=== PATIENT | female | born 1975 | race Hispanic/Latino ===

== ENCOUNTER 2018-04-23 17:19 | Emergency (ER) | payer OTHER ==
[~2018-04-23] VITALS: Ht 154.9 cm; Wt 74.8 kg
--- NOTE | 2018-04-23 17:36 | ED GENERAL ADULT ---
History of Present Illness General Chief Complaint: Chest Pain Stated Complaint: CP, RLE EDEMA, COUGH, SOB, X 3 MONTHS Source: patient Exam Limitations: no limitations Vital Signs & Intake/Output Vital Signs & Intake/Output Vital Signs Date Time Temp Pulse Resp B/P B/P Pulse O2 O2 Flow FiO2 Mean Ox Delivery Rate 04/23 2157 98.2 74 18 128/79 99 Room Air 04/23 1729 98.5 86 18 131/86 98 Room Air ED Intake and Output 04/24 0000 04/23 1200 Intake Total Output Total Balance Patient 165 lb Weight Allergies Coded Allergies: NO KNOWN ALLERGIES (02/18/11) Reconcile Medications Cyclobenzaprine HCl 10 MG TABLET 1 TAB PO TID PRN PAIN Ibuprofen 800 MG TABLET 1 TAB PO TID PRN PAIN Triage Note: 43 YEAR OLD FEMALE STATES THAT SHE HAS BEEN HAVING R SIDE UPPER BACK PAIN FOR THE PAST 3 WEEKS , ALSO STATES THAT SHE IS HAVING CHEST TIGHTNESS , SLIGHT COUGH AND PAIN IN HER R CALF AREA. Triage Nurses Notes Reviewed? yes Onset: Abrupt Duration: week(s): (3), constant, continues in ED, getting worse Timing: single episode today Injury Environment: home Severity: moderate, severe Severity Numbers: 8 No Modifying Factors: none Associated Symptoms: back pain, cough LMP (ages 10-50): unknown : No Patient currently breastfeeds: Yes HPI: 43-year-old female with no medical history presents for evaluation of cough, shortness of breath and right-sided back and chest pain. Patient reports symptoms started initially 3 weeks ago with back pain. The pain is located in the right upper back and radiates into the right chest. The pain is worse with movement of the right shoulder and deep inspiration. She does report she has a dry cough and shortness of breath associated. She also notes she has had some pain and swelling in her right calf that has been present for several weeks now as well. She states that one point it was red but this is gone away. She reports some associated dizziness and headaches. No fever neck pain changes in vision slurred speech hemoptysis recent surgery or recent trauma. No focal weakness. She has not taken any medicine for pain. She was referred here from urgent care for further evaluation. Past History Travel History Traveled to [place] past 21 day No Medical History Any Pertinent Medical History? 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 No Review of Systems Review of Systems Constitutional: Reports: no symptoms. EENTM: Reports: no symptoms. Respiratory: Reports: see HPI, cough, short of breath. Cardiovascular: Reports: see HPI, chest pain. GI: Reports: no symptoms. Genitourinary: Reports: no symptoms. Musculoskeletal: Reports: see HPI, back pain, muscle pain, muscle stiffness. Skin: Reports: no symptoms. Neurological/Psychological: Reports: see HPI (DIZZY), headache. Hematologic/Endocrine: Reports: no symptoms. Immunologic/Allergic: Reports: no symptoms. All Other Systems: Reviewed and Negative Physical Exam Physical Exam General Appearance: well developed/nourished, no apparent distress, alert, awake Head: atraumatic, normal appearance Eyes: Bilateral: normal appearance, PERRL, EOMI. Ears, Nose, Throat: hearing grossly normal Neck: normal inspection, supple, full range of motion Respiratory: normal breath sounds, chest non-tender, no respiratory distress, lungs clear Cardiovascular: regular rate/rhythm, normal peripheral pulses Peripheral Pulses: 2+ radial (R), 2+ radial (L) Gastrointestinal: soft, non-tender Back: normal inspection, normal range of motion, no vertebral tenderness, RT SIDED THORACIC PARASPINOUS MUSCLES AND RT SCAPULAR AREA IS TENDER TO PALPATION. NO BRUSING SWELLING OR ABRASIONS. PAIN IS REPRODUCIBLE WITH ROM OF THE RT SHOUDELR AND DEEP INSPIRATION. N/V SUPPLY INTACT TO BILATERAL UPPER EXTREMITIIES. Extremities: normal range of motion, THERE IS MILD SOFT TISSUE SWELLING AND TENDERNESS TO THE RT CALF. NO ERYTHEMA OR FOCAL FLUCTAUNT AREAS. FULL ROM INTACT TO THE RLE Neurologic/Psych: no motor/sensory deficits, awake, alert, oriented x 3, normal gait, normal mood/affect Skin: intact, normal color, warm/dry Lymphatic: no anterior cervical lukasz Core Measures ACS in differential dx? No CVA/TIA Diagnosis: No Sepsis Present: No Sepsis Focused Exam Completed? No Progress Differential Diagnoses I considered the following diagnoses in my evaluation of the patient: [Muscle strain, costochondritis, pneumonia, bronchitis, acute coronary syndrome, PE, aortic dissection] Plan of Care: Orders Procedure Date/time Status Add-on Test (ER Only) 04/23 2140 Active URINE 04/23 1733 Complete URINALYSIS 04/23 1733 Complete TROPONIN LEVEL 04/23 1733 Complete D-DIMER 04/23 1733 Complete COMPREHENSIVE METABOLIC PANEL 04/23 1733 Complete CBC WITHOUT DIFFERENTIAL 04/23 1733 Complete EKG 04/23 1722 Active Laboratory Tests 04/23/183: Urine Color BLDY H, Urine Clarity HAZY H, Urine pH 6.5, Ur Specific Pioneer 1.020, Urine Protein 100 H, Urine Ketones TRACE H, Urine Nitrite POS H, Urine Bilirubin NEG@ICTO, Urine Urobilinogen 1.0, Ur Leukocyte Esterase MOD H, Ur Microscopic SEDIMENT EXAMINED, Urine RBC >75 H, Urine WBC 10-15 H, Ur Epithelial Cells MOD H, Urine Hemoglobin LARGE H, Urine Glucose NEG, Urine Test NEGATIVE 04/23/186: D-Dimer High Sensitivty < 200, CBC w Diff NO MAN DIFF REQ, RBC 4.76, MCV 76.9 L , MCH 26.2 L, MCHC 34.0, RDW 15.1 H, MPV 8.9, Gran % 52.5, Lymphocytes % 35.3, Monocytes % 6.9, Eosinophils % 4.9, Basophils % 0.4, Absolute Granulocytes 2.6, Absolute Lymphocytes 1.7, Absolute Monocytes 0.3, Absolute Eosinophils 0.2, Absolute Basophils 0 04/23/181732: Anion Gap 10, Estimated GFR > 60, BUN/Creatinine Ratio 16.3, Glucose 70, Calcium 8.9, Total Bilirubin 0.2, AST 20, ALT 27, Alkaline Phosphatase 63, Troponin I < 0.01, Total Protein 7.1, Albumin 4.2, Globulin 2.9, Albumin/Globulin Ratio 1.4 Patient is here for evaluation of right upper back and right chest pain. This pain started 3 weeks ago and has been persistent and getting worse. The pain is worse with range of motion of the right shoulder palpation of the area and deep inspiration. Patient also notes some right lower extremity pain and swelling. An ultrasound was ordered basic labs was ordered EKG. Patient will require imaging of her chest will follow up on d-dimer. Patient was medicated with ibuprofen. Lab work is unremarkable including a negative d-dimer negative troponin EKG sinus rhythm without acute changes. Chest x-ray is clear. Ultrasound is negative. Suspect this pain may be musculoskeletal it is very reproducible with deep inspiration palpation and range of motion. Advised symptomatic treatment with Tylenol ibuprofen and Flexeril. Discussed return precautions in detail follow-up with primary care doctor patient agrees the plan Diagnostic Imaging: Viewed by Me: Radiology Read, Ultrasound. Discussed w/RAD: Radiology Read, Ultrasound. Radiology Impression: PATIENT: MARCI CASTELLANO PRESENT AGE: 43 PATIENT ACCOUNT NO: [id number] : 77 LOCATION: ER ORDERING PHYSICIAN: Shayne CARLISLE SERVICE DATE: 04/23/18 EXAM TYPE: RAD - XRY- CHEST XRAY, TWO VIEWS EXAMINATION: XR CHEST CLINICAL INFORMATION: Right-sided upper back pain. COMPARISON: None TECHNIQUE: 2 views of the chest were obtained. FINDINGS: No significant abnormality is noted involving the heart, lungs, mediastinum, bony thorax or soft tissues. IMPRESSION: Unremarkable examination. 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 <Electronically signed in Other Vendor System> SIGNED BY: Yoni Rodriguez MD 04/23/182150, PATIENT: MARCI CASTELLANO PRESENT AGE: 43 PATIENT ACCOUNT NO: [id number] : 77 LOCATION: [facility] ORDERING PHYSICIAN: Shayne CARLISLE SERVICE DATE: 04/23/18 EXAM TYPE: US - US-DUPLEX VENOUS EXTREM UNI EXAMINATION: US TRIPLEX LOWER EXTREMITY, RIGHT CLINICAL INFORMATION: Right lower extremity pain and swelling. COMPARISON: None TECHNIQUE: Color-flow triplex imaging with spectral analysis and compression Doppler were performed on the lower extremity. FINDINGS: Respiratory variation, normal compression and augmented flow are noted throughout the lower extremity. The visualized common femoral vein, superficial femoral vein, profunda femoral vein, popliteal vein and midcalf peroneal and posterior tibial venous segments show no evidence of deep venous thrombosis. There is no Alexandre's cyst. IMPRESSION: No evidence of deep venous thrombosis involving the lower extremity. DICTATED BY: Ronnell Nelson MD DATE/TIME DICTATED :04/23/181920 MANAGER EMPLOYEE BENEFITS:[employer] DATE/TIME TRANSCRIBED:04/23/181920 CONFIDENTIAL, DO NOT COPY WITHOUT APPROPRIATE AUTHORIZATION. < Electronically signed in Other Vendor System> Initial ED EKG: normal sinus rhythm, no ST T wave changes Departure Departure Disposition: HOME OR SELF CARE Condition: Stable Clinical Impression Primary Impression: Back pain Qualifiers: Back pain location: thoracic back pain Chronicity: acute Back pain laterality: right Qualified Code: M54.6 - Pain in thoracic spine Referrals: Severiano OCONNOR,Marya (PCP/Family) Additional Instructions: Rest, avoid heavy lifting bending or excessive physical activity. Tylenol ibuprofen for pain cyclobenzaprine as a muscle relaxer that can be used every 8 hours as needed this may cause a little drowsiness. Make a follow-up appointment with your primary care doctor to review all results of today's visit. Monitor your symptoms return with any concerns. Departure Forms: Customer Survey General Discharge Information Prescriptions: Current Visit Scripts Ibuprofen 1 TAB PO TID PRN PAIN #30 TAB Cyclobenzaprine HCl 1 TAB PO TID PRN PAIN #30 TAB Critical Care Note Critical Care Note Critical Care Time: non-applicable
--- NOTE | 2018-04-23 19:25 | ULTRASOUND REPORT ---
EXAMINATION: US TRIPLEX LOWER EXTREMITY, RIGHT CLINICAL INFORMATION: Right lower extremity pain and swelling. COMPARISON: None TECHNIQUE: Color-flow triplex imaging with spectral analysis and compression Doppler were performed on the lower extremity. FINDINGS: Respiratory variation, normal compression and augmented flow are noted throughout the lower extremity. The visualized common femoral vein, superficial femoral vein, profunda femoral vein, popliteal vein and midcalf peroneal and posterior tibial venous segments show no evidence of deep venous thrombosis. There is no Alexandre's cyst. IMPRESSION: No evidence of deep venous thrombosis involving the lower extremity.
[2018-04-23 19:36] LABS: ABSOLUTE BASOPHIL COUNT 0 /CUMM (0.0-0.2); ABSOLUTE EOSINOPHIL COUNT 0.2 /CUMM (0.0-0.7); ABSOLUTE GRANULOCYTE CT 2.6 /CUMM (1.4-6.5); ABSOLUTE LYMPH COUNT 1.7 /CUMM (1.2-3.4); ABSOLUTE MONOCYTE COUNT 0.3 /CUMM (0.10-0.60); BASOPHIL % 0.4 % (0.0-2.0); EOSINOPHIL % 4.9 % (0-5); GRANULOCYTE % 52.5 % (42.2-75.2); HEMATOCRIT 36.6 % (37-47); MEAN CORPUSCULAR HGB 26.2 PG (27.0-31.0); MEAN CORPUSCULAR VOLUME 76.9 FL (81.0-99.0); MEAN PLATELET VOLUME 8.9 FL (7.4-10.4); PLATELET COUNT 251 /CUMM (130-400); RBC DISTRIBUTION WIDTH 15.1 % (11.5-14.5); RED BLOOD CELL CT 4.76 /CUMM (4.20-5.40); WHITE BLOOD CELL COUNT 4.9 /CUMM (4.8-10.8)
--- NOTE | 2018-04-23 21:51 | RADIOLOGY REPORT ---
EXAMINATION: XR CHEST CLINICAL INFORMATION: Right-sided upper back pain. COMPARISON: None TECHNIQUE: 2 views of the chest were obtained. FINDINGS: No significant abnormality is noted involving the heart, lungs, mediastinum, bony thorax or soft tissues. IMPRESSION: Unremarkable examination.
[2018-04-23 21:57] VITALS: BP 128/79
[2018-04-23] MEDS ORDERED: IBUPROFEN800 M1 PO (22:00)
[2018-04-23] MEDS ORDERED: CYCLOBENZAPRINE10 M1 PO (22:00)
== END 2018-04-23 22:07 ==
LOC: ERH 17:19
PROVIDERS: Physician Assistant Medical
DX: M54.6 Pain in thoracic spine (principal); R05 Cough; R06.02 Shortness of breath; R07.9 Chest pain, unspecified; M79.89 Other specified soft tissue disorders; M79.661 Pain in right lower leg; R42 Dizziness and giddiness
CPT/HCPCS: 71046; 81001; 81025; 93005; 93010